=== PATIENT | female | born 1975 | race Caucasian/White ===

== ENCOUNTER 2024-02-09 04:42 | Emergency (ER) | payer BC ==
[2024-02-09] MEDS: Ondansetron 4 MG/2 ML SDV IVPUSH ONE (05:09)
[2024-02-09] MEDS: Ketorolac 30 MG/ML SDV IVPUSH ONE (05:10)
[2024-02-09 05:38] LABS: ANION GAP 8.1 mmol/L (5.0-14.0); CALCIUM 8.1 mg/dL (8.5-10.1); CREATININE 1.1 mg/dL (0.6-1.0); EST CRCL DRUG DOSING (CG) 55.06 mL/min; POTASSIUM,K 3.7 mmol/L (3.6-5.2)
[2024-02-09 05:40] LABS: BASOPHILS ABSOLUTE AUTO 0.03 K/uL (0.00-0.10); BASOPHILS PERCENT AUTO 0.5 % (0.1-1.3); EOSINOPHILS PERCENT AUTO 0.2 % (0.0-5.4); HEMATOCRIT 41.5 % (34.3-46.0); HEMOGLOBIN 14.9 g/dL (11.2-15.5); IMMATURE GRAN ABSOLUTE AUTO 0.03 K/uL (0.00-0.23); IMMATURE GRAN PERCENT AUTO 0.5 % (0.0-0.7); LYMPHOCYTES ABSOLUTE AUTO 1.27 K/uL (0.8-3.3); LYMPHOCYTES PERCENT AUTO 19.3 % (11.4-47.7); MEAN CORPUSCULAR HGB CONC 35.9 g/dL (31.6-35.5); MEAN CORPUSCULAR VOLUME 89.2 fL (81.4-99.0); MONOCYTES ABSOLUTE AUTO 0.31 K/uL (0.20-0.90); MONOCYTES PERCENT AUTO 4.7 % (3.3-12.6); NEUTROPHILS ABSOLUTE AUTO 4.94 K/uL (1.0-7.6); NEUTROPHILS PERCENT AUTO 74.8 % (40.0-78.1); PLATELET COUNT,PLT 269 K/uL (130-375); RED BLOOD CELL COUNT 4.65 M/uL (3.77-5.24); WHITE BLOOD CELL COUNT,WBC 6.6 K/uL (3.2-11.0)
[2024-02-09 05:43] LABS: EOSINOPHILS ABSOLUTE AUTO 0.01 K/uL (0.00-0.40)
[2024-02-09] MEDS: Tamsulosin 0.4 MG Cap.ER PO ONE (06:24)
== END 2024-02-09 06:30 | disposition home or self-care (01) ==
LOC: JP.ED 04:42
DX: N13.2 Hydronephrosis with renal and ureteral calculous obstruction (principal); Z79.899 Other long term (current) drug therapy
CPT/HCPCS: 36415; 74176; 80048; 85025; 96374; 96375; 99284; A9270; J1885; J2405